=== PATIENT | male | born 1960 | race Caucasian/White ===

== ENCOUNTER 2023-11-02 13:47 | Emergency (ER) | payer OTHER ==
[~2023-11-02] VITALS: Ht 162.6 cm; Wt 87.8 kg
[2023-11-02 15:20] LABS: Basophils # (auto) 0 10 ^3/uL (0-0.2); Basophils % (auto) 0.5 % (0.0-2.0); Eosinophils # (auto) 0 10 ^3/uL (0-0.8); Eosinophils % (auto) 0.1 % (0.0-7.0); Hematocrit 40.7 % (41.0-53.0); Hemoglobin 13.8 g/dL (13.5-17.5); Lymphocytes # (auto) 1.2 10 ^3/uL (0.4-5.4); Lymphocytes % (auto) 16.7 % (10.0-50.0); Mean Corpuscular Hemoglobin 28.6 pg (28.0-32.0); Mean Corpuscular Hgb Conc. 33.8 g/dL (32.0-36.0); Mean Corpuscular Volume 84.6 fL (80.0-100.0); Monocytes # (auto) 0.7 10 ^3/uL (0-1.3); Monocytes % (auto) 9.3 % (0.0-12.0); Neutrophils # (auto) 5.3 10 ^3/uL (1.6-8.6); Neutrophils % (auto) 73.4 % (37.0-80.0); Nucleated Red Blood Cells % 0.2 %; Red Blood Cells 4.82 10^6/uL (4.5-5.90); Red Cell Distribution Width 13.7 % (11.8-14.3); White Blood Cell 7.2 10^3/uL (4.4-10.8)
[2023-11-02 15:36] LABS: Alanine Aminotransferase 68 U/L (7-40); Alkaline Phosphatase 124 U/L (46-116); Anion Gap 8 (5-15); Aspartate Aminotransferase 63 U/L (13-40); BUN/Creatinine Ratio 22.1 (10.0-20.0); Bilirubin, Total 2.5 mg/dL (0.2-1.0); Blood Urea Nitrogen 49 mg/dL (9-23); Calcium 9.2 mg/dL (8.7-10.4); Carbon Dioxide 22 mmol/L (20-30); Chloride 104 mmol/L (98-107); Glucose 125 mg/dL (74-106); Sodium 134 mmol/L (136-145); Total Protein 7.1 g/dL (5.7-8.2)
[2023-11-02] MEDS ORDERED: ZOFR4T PO (22:18)
[2023-11-02] MEDS ORDERED: DICY10CA PO (22:18)
[2023-11-02] MEDS ORDERED: ACET500T58 PO (22:18)
[2023-11-02 22:32] VITALS: BP 139/85; PULSE 77; RESP 18; TEMP 98.2; O2SAT 97
== END 2023-11-02 22:31 | disposition home or self-care (01) ==
LOC: ER 13:47
DX: A08.4 Viral intestinal infection, unspecified (principal); I10 Essential (primary) hypertension; E11.9 Type 2 diabetes mellitus without complications; R07.89 Other chest pain
CPT/HCPCS: 36415; 71046; 80053; 82962; 85025; 93005